=== PATIENT | female | born 1960 | race African-American/Black ===

== ENCOUNTER 2018-12-10 19:15 | Emergency (ER) | payer OTHER ==
[~2018-12-10] VITALS: Ht 167.6 cm; Wt 90.3 kg
[2018-12-10] MEDS ORDERED: ASPIRIN 81 MG CHEW TAB PO ONE (19:45)
--- NOTE | 2018-12-10 20:26 | Diagnostic Imaging Report ---
EXAMINATION: PA and lateral views of the chest. COMPARISON: None CLINICAL HISTORY: Discomfort and heart, left shoulder blade pain for 5 days, maybe pulled a muscle DISCUSSION: Lines/tubes: None. Lungs: The lungs are well inflated and clear. There is no evidence of pneumonia or pulmonary edema. Pleura: There is no pleural effusion or pneumothorax. Heart and mediastinum: Mild enlargement of the cardiac silhouette. Pulmonary vasculature is normal. Bones and soft tissues: No acute bony abnormalities. IMPRESSION: Mild enlargement of the cardiac silhouette, without acute cardiopulmonary abnormalities. Signed by: Dr. Eliseo Hernandez M.D. on 12/10/2018 8:22 PM
== END 2018-12-10 21:45 | disposition left against medical advice (07) ==
LOC: FSED 19:15
DX: R07.2 Precordial pain (principal); I10 Essential (primary) hypertension; Z82.49 Family history of ischemic heart disease and other diseases of the circulatory system
CPT/HCPCS: 71046; 93005; 99283